=== PATIENT | male | born 1985 | race Caucasian/White ===

== ENCOUNTER 2020-10-23 16:52 | Inpatient (IN) | payer OTHER ==
[2020-10-23 18:26] VITALS: BMI 22.5
[2020-10-23] MEDS ORDERED: MENTHOL/PHENOL 1 EACH UD MM PRN (21:01)
[2020-10-23] MEDS ORDERED: METHOCARBAMOL 500 MG TABLET PO PRN (21:01)
[2020-10-23] MEDS ORDERED: ACETAMINOPHEN 325 MG TABLET (FP) PO PRN ×2 (21:01)
[2020-10-23] MEDS ORDERED: MAGNESIUM HYDROX 2400MG/30ML ORAL SUSPENSION 30 ML CUP PO PRN (21:01)
[2020-10-23] MEDS ORDERED: METHADONE HCL 10 MG TABLET (FOR DETOX USE ONLY) PO ONE (21:01)
[2020-10-23] MEDS ORDERED: NICOTINE POLACRILEX 4 MG GUM BUC PRN (21:01)
[2020-10-23] MEDS ORDERED: cloNIDine HCL 0.1 MG TABLET PO PRN (21:01)
[2020-10-23] MEDS ORDERED: BISMUTH SUBSALICYLATE 524 MG/30 ML PO PRN (21:01)
[2020-10-23] MEDS ORDERED: MAG HYDROX/AL HYDROX/SIMETH 30 ML UNIT-DOSE CUP PO PRN (21:01)
[2020-10-23] MEDS ORDERED: NICOTINE POLACRILEX 2 MG GUM BUC PRN (21:01)
[2020-10-23] MEDS ORDERED: IBUPROFEN 400 MG TABLET (FP) PO PRN (21:01)
[2020-10-23] MEDS ORDERED: ONDANSETRON *ODT* 4 MG TABLET SL PRN (21:01)
[2020-10-23] MEDS ORDERED: MAGNESIUM CITRATE 300 ML BOTTLE PO PRN (21:01)
[2020-10-24] MEDS: hydrOXYzine PAMOATE 25 MG CAPSULE (FP) PO SCH ×6 (00:14→23:47)
[2020-10-24] MEDS: THIAMINE HCL 100 MG TABLET (FP) PO SCH ×2 (00:14→23:47)
[2020-10-24] MEDS: MELATONIN 5 MG TABLETS PO SCH ×2 (00:15→23:46)
[2020-10-24] MEDS: diazePAM 5 MG TABLET PO SCH ×5 (00:15→23:46)
[2020-10-24] MEDS ORDERED: METHADONE HCL 5 MG TABLET (FOR DETOX USE ONLY) ONE (09:01)
[2020-10-24] MEDS ORDERED: METHADONE HCL 10 MG TABLET (FOR DETOX USE ONLY) ONE (09:01)
[2020-10-24] MEDS ORDERED: METHADONE (DETOX) 20 MG, METHADONE (DETOX) 5 MG PO ONE (10:00)
[2020-10-24 10:15] LABS: HEMATOCRIT 39.5 % (35.4-49); MCH 28.7 pg (25.7-33.7); MCHC 32.9 g/dl (32.0-35.9); MEAN CELL VOLUME 87.3 fl (80-96); MEAN PLT VOLUME 8.3 fl (7.5-11.1); PLATELET COUNT 299 10^3/uL (134-434); RBC 4.52 M/mm3 (4.00-5.60); RDW 14.5 % (11.9-15.9); WHITE BLOOD COUNT 5.3 K/mm3 (4.0-10.0)
[2020-10-24 10:21] LABS: CALCIUM 9.2 mg/dL (8.5-10.1)
[2020-10-24 10:22] LABS: BLOOD UREA NITROGEN 11.4 mg/dL (7-18)
[2020-10-24 10:25] LABS: CREATININE 0.7 mg/dL (0.55-1.3)
[2020-10-24 10:26] LABS: TOT PROT 6.4 g/dl (6.4-8.2)
[2020-10-24 10:29] LABS: BILIRUBIN,TOTAL 0.6 mg/dL (0.2-1)
[2020-10-24] MEDS: PRENATAL VITAMINS W/ FOLIC ACID TABLET (FP) PO SCH (10:35)
[2020-10-24] MEDS: NICOTINE 21 MG/24 HOURS TOPICAL PATCH TD SCH (10:35)
[2020-10-25] MEDS: diazePAM 5 MG TABLET PO SCH ×3 (05:32→22:45)
[2020-10-25] MEDS: hydrOXYzine PAMOATE 25 MG CAPSULE (FP) PO SCH ×5 (05:32→22:45)
[2020-10-25] MEDS: NICOTINE 21 MG/24 HOURS TOPICAL PATCH TD SCH (09:43)
[2020-10-25] MEDS: diazePAM 5 MG TABLET PO PRN ×2 (09:43→20:32)
[2020-10-25] MEDS: PRENATAL VITAMINS W/ FOLIC ACID TABLET (FP) PO SCH (09:43)
[2020-10-25] MEDS ORDERED: METHADONE HCL 10 MG TABLET (FOR DETOX USE ONLY) PO ONE (10:00)
[2020-10-25 21:13] VITALS: TEMP 96.9
[2020-10-25] MEDS: THIAMINE HCL 100 MG TABLET (FP) PO SCH (22:45)
[2020-10-25] MEDS: MELATONIN 5 MG TABLETS PO SCH (22:45)
[2020-10-26] MEDS: hydrOXYzine PAMOATE 25 MG CAPSULE (FP) PO SCH ×2 (05:46→10:05)
[2020-10-26] MEDS ORDERED: diazePAM 5 MG TABLET PO SCH (06:00)
[2020-10-26 08:52] VITALS: BP 126/74; PULSE 65
[2020-10-26] MEDS ORDERED: METHADONE HCL 5 MG TABLET (FOR DETOX USE ONLY) ONE (09:12)
[2020-10-26] MEDS ORDERED: METHADONE HCL 10 MG TABLET (FOR DETOX USE ONLY) ONE (09:12)
[2020-10-26] MEDS ORDERED: METHADONE (DETOX) 10 MG, METHADONE (DETOX) 5 MG PO ONE (10:00)
[2020-10-26] MEDS ORDERED: hydrOXYzine PAMOATE 25 MG CAPSULE (FP) PO PRN (10:33)
[2020-10-26] MEDS: PRENATAL VITAMINS W/ FOLIC ACID TABLET (FP) PO SCH (10:48)
[2020-10-26] MEDS: NICOTINE 21 MG/24 HOURS TOPICAL PATCH TD SCH (10:48)
[2020-10-27] MEDS ORDERED: diazePAM 5 MG TABLET PO ONE (06:00)
[2020-10-27] MEDS ORDERED: METHADONE HCL 10 MG TABLET (FOR DETOX USE ONLY) PO ONE (10:00)
[2020-10-28] MEDS ORDERED: METHADONE HCL 5 MG TABLET (FOR DETOX USE ONLY) PO ONE (06:00)
== END 2020-10-26 12:02 | disposition left against medical advice (07) | DRG 770 ==
LOC: YASAS 16:52 → Y3N 22:39
PROVIDERS: ADMIT Allergy & Immunology; ATTEND Allergy & Immunology
PROC: HZ2ZZZZ Detoxification Services for Substance Abuse Treatment (ICD-10-PCS; principal; 2020-10-23)
DX: F11.23 Opioid dependence with withdrawal (principal); F13.20 Sedative, hypnotic or anxiolytic dependence, uncomplicated; F17.210 Nicotine dependence, cigarettes, uncomplicated; B19.20 Unspecified viral hepatitis C without hepatic coma
CPT/HCPCS: 36415; 80053; 85027; 86780; C9803; U0003; U0005

== ENCOUNTER 2021-05-21 10:31 | Inpatient (IN) | payer OTHER ==
[2021-05-21] MEDS ORDERED: METHOCARBAMOL 500 MG TABLET PO PRN (14:57)
[2021-05-21] MEDS ORDERED: MAGNESIUM CITRATE 300 ML BOTTLE PO PRN (14:57)
[2021-05-21] MEDS ORDERED: MELATONIN 5 MG TABLETS PO PRN (14:57)
[2021-05-21] MEDS ORDERED: MENTHOL/PHENOL 1 EACH UD MM PRN (14:57)
[2021-05-21] MEDS ORDERED: NICOTINE POLACRILEX 2 MG GUM BUC PRN (14:57)
[2021-05-21] MEDS ORDERED: cloNIDine HCL 0.1 MG TABLET PO PRN (14:57)
[2021-05-21] MEDS ORDERED: ONDANSETRON *ODT* 4 MG TABLET SL PRN (14:57)
[2021-05-21] MEDS ORDERED: methaDONE HCL 10 MG TABLET (FOR DETOX USE ONLY) PO ONE ×2 (14:57→20:33)
[2021-05-21] MEDS ORDERED: hydrOXYzine PAMOATE 25 MG CAPSULE (FP) PO PRN (14:57)
[2021-05-21] MEDS ORDERED: ACETAMINOPHEN 325 MG TABLET (FP) PO PRN ×2 (14:57)
[2021-05-21] MEDS ORDERED: IBUPROFEN 400 MG TABLET (FP) PO PRN (14:57)
[2021-05-21] MEDS ORDERED: NICOTINE 10 MG CARTRIDGE (INHALER) IH PRN (14:57)
[2021-05-21] MEDS ORDERED: diazePAM 5 MG TABLET PO ONE (14:57)
[2021-05-21] MEDS ORDERED: MAG HYDROX/AL HYDROX/SIMETH 30 ML UNIT-DOSE CUP PO PRN (14:57)
[2021-05-21] MEDS ORDERED: BISMUTH SUBSALICYLATE 524 MG/30 ML PO PRN (14:57)
[2021-05-21] MEDS ORDERED: MAGNESIUM HYDROX 2400MG/30ML ORAL SUSPENSION 30 ML CUP PO PRN (14:57)
[2021-05-21 15:15] VITALS: BMI 22.9
[2021-05-21] MEDS: diazePAM 5 MG TABLET PO PRN (20:25)
[2021-05-22] MEDS: diazePAM 5 MG TABLET PO SCH ×5 (00:04→22:50)
[2021-05-22] MEDS: THIAMINE HCL 100 MG TABLET (FP) PO SCH ×2 (00:10→23:39)
[2021-05-22] MEDS ORDERED: methaDONE HCL 10 MG TABLET (FOR DETOX USE ONLY) ONE (09:30)
[2021-05-22] MEDS: PRENATAL VITAMINS W/ FOLIC ACID TABLET (FP) PO SCH (11:01)
[2021-05-22 11:22] LABS: HEMATOCRIT 42.7 % (35.4-49); HEMOGLOBIN 13.7 GM/dL (11.7-16.9); MCH 27.8 pg (25.7-33.7); MCHC 32.2 g/dl (32.0-35.9); MEAN CELL VOLUME 86.3 fl (80-96); MEAN PLT VOLUME 8.7 fl (7.5-11.1); PLATELET COUNT 214 10^3/uL (134-434); RBC 4.95 M/mm3 (4.00-5.60); RDW 14.4 % (11.9-15.9); WHITE BLOOD COUNT 4.3 K/mm3 (4.0-10.0)
[2021-05-22 11:28] LABS: ALBUMIN 3.2 g/dl (3.4-5.0); CALCIUM 8.9 mg/dL (8.5-10.1)
[2021-05-22 11:29] LABS: BLOOD UREA NITROGEN 16.4 mg/dL (7-18)
[2021-05-22 11:31] LABS: CREATININE 0.7 mg/dL (0.55-1.3)
[2021-05-22 11:33] LABS: BILIRUBIN,TOTAL 0.4 mg/dL (0.2-1); TOT PROT 6.4 g/dl (6.4-8.2)
[2021-05-23] MEDS: diazePAM 5 MG TABLET PO SCH ×3 (05:34→22:01)
[2021-05-23] MEDS ORDERED: methaDONE HCL 10 MG TABLET (FOR DETOX USE ONLY) PO ONE (10:00)
[2021-05-23] MEDS: diazePAM 5 MG TABLET PO PRN ×2 (10:09→16:55)
[2021-05-23] MEDS: PRENATAL VITAMINS W/ FOLIC ACID TABLET (FP) PO SCH (10:12)
[2021-05-23] MEDS: THIAMINE HCL 100 MG TABLET (FP) PO SCH (22:02)
[2021-05-24] MEDS: diazePAM 5 MG TABLET PO PRN ×3 (03:35→14:37)
[2021-05-24] MEDS ORDERED: diazePAM 5 MG TABLET PO SCH (06:00)
[2021-05-24] MEDS ORDERED: methaDONE HCL 10 MG TABLET (FOR DETOX USE ONLY) ONE (08:37)
[2021-05-24] MEDS ORDERED: methaDONE HCL 10 MG TABLET (FOR DETOX USE ONLY) PO ONE (09:34)
[2021-05-24] MEDS: PRENATAL VITAMINS W/ FOLIC ACID TABLET (FP) PO SCH (10:21)
[2021-05-24 17:54] VITALS: BP 132/76; PULSE 62; TEMP 96.8
[2021-05-25] MEDS ORDERED: diazePAM 5 MG TABLET PO ONE (06:00)
[2021-05-25] MEDS ORDERED: methaDONE HCL 10 MG TABLET (FOR DETOX USE ONLY) PO ONE (10:00)
== END 2021-05-24 16:56 | disposition left against medical advice (07) | DRG 770 ==
LOC: YASAS 10:31 → Y3N 18:33
PROVIDERS: ADMIT Allergy & Immunology; ATTEND Allergy & Immunology
PROC: HZ2ZZZZ Detoxification Services for Substance Abuse Treatment (ICD-10-PCS; principal; 2021-05-21)
DX: F11.23 Opioid dependence with withdrawal (principal); F14.20 Cocaine dependence, uncomplicated; F13.230 Sedative, hypnotic or anxiolytic dependence with withdrawal, uncomplicated; F17.210 Nicotine dependence, cigarettes, uncomplicated; U07.1 COVID-19; E88.09 Other disorders of plasma-protein metabolism, not elsewhere classified; B18.2 Chronic viral hepatitis C; R74.01 Elevation of levels of liver transaminase levels; R63.8 Other symptoms and signs concerning food and fluid intake
CPT/HCPCS: 36415; 80053; 85027; 86780; C9803; U0003; U0005